=== PATIENT | female | born 1965 | race Caucasian/White ===

== ENCOUNTER 2018-06-09 23:22 | Emergency (ER) | payer OTHER, SELFPAY ==
[2018-06-09 23:23] VITALS: BP 152/83; PULSE 68; RESP 14; TEMP 36.7; O2SAT 100; BMI 52.8
[2018-06-09 23:25] VITALS: BP 152/83; PULSE 61; RESP 14; O2SAT 100
--- NOTE | 2018-06-09 23:59 | ED.VIS.GEN ---
History of Present Illness Chief Complaint: Abd Pain Informant: Patient Onset: Hours - 1 Context: Sudden Onset - awhile after laid supine to sleep Timing: Continuous, Lasts - abouat 20 min, Waxes and wanes Quality: aching Location: epigastrium only, no radiation to sides or back or chest Current Severity: Mild Maximum Severity: Severe Worsened by: nothing Relieved by: after vomiting Associated Symptoms: nonbilious nonbloody emesis. no diarrhea, BRBPR, melena, CP, SOB. Narrative: History of but no other abdominal surgeries. Patient is concerned about her gallbladder, but admits that she has no specific reason to be, she just knows that her gallbladder is up there somewhere. - Past Medical History (1) GERD (gastroesophageal reflux disease) Status: Chronic (2) History of Helicobacter pylori infection Status: Resolved (3) Hypertension Status: Chronic Past Medical History - Allergies and Home Meds Allergies/Adverse Reactions: Allergies No Known Allergies Allergy (Verified 06/09/18 23:25) Primary Care Physician: Reinaldo Segal DO [Primary Care Provider] - 1-2 Days if not improving Smoking Status: Former smoker Review of Systems General: Denies: Chills, Fever Eyes: Denies: Visual changes - bilaterally, Diplopia ENT: Denies: Rhinorrhea, Sore throat Cardiovascular: Denies: Chest pain, Palpitations Respiratory: Denies: Dyspnea, Cough Gastrointestinal: Reports: Abdominal pain, Nausea, Vomiting. Denies: Diarrhea, Constipation, Melena, Hematochezia Genitourinary: Denies: Dysuria, Hematuria, Frequency Musculoskeletal: Reports: Swelling - Chronic, unchanged. Denies: Neck pain, Back pain Skin: Denies: Rash, Abscess Neurological: Denies: Headache, Weakness, Parasthesia, Numbness Endocrine: Denies: Heat intolerance, Cold intolerance Hematologic: Denies: Easy bruising, Easy bleeding Allergy: Denies: Swelling of the mouth, Swelling of the tongue Physical Exam Vital Signs/Narrative: Vital Signs Temp Pulse Resp BP Pulse Ox 06/09/18 23:25 61 14 152/83 H 100 06/09/18 23:23 98.0 F 68 14 152/83 H 100 General: Well nourished, Well developed, Obese Head: Normocephalic, Atraumatic Eyes: Perrl, EOMI ENT: Moist mucous membranes, No rhinorrhea Neck: Supple, Nontender Cardiovascular: Regular rate, Regular rhythm, No murmurs Respiratory: No distress, CTA bilaterally, Chest nontender Abdomen: Soft, Nondistended, Normal bowel sounds, Tender - Minimal, epigastric only. Otherwise benign.. Negative for: Gibbons's sign Extremities: Nontender, Edema - BLE, symmetric Skin: Normal color, No rash Neurological: Alert, Oriented x3, Cranial nerves II-XII grossly intact, Normal Strength, Normal Sensation Psychological: Normal affect Diagnostic/Tx/Re-eval Laboratory Tests 06/10/18 06/10/18 Range/Units 00:08 00:08 WBC 10.1 (4.4-11.0) K/mm3 RBC 4.35 (4.2-5.4) M/mm3 Hgb 11.6 L (12.0-15.0) g/dl Hct 37.1 (37-47) % MCV 85.3 (81-99) fL MCH 26.7 L (27.0-32.0) pg MCHC 31.3 L (32-36) g/gl RDW 15.3 H (11.6-14.6) % RDW Differential 46.9 H (35.1-43.9) fl Plt Count 148 L (150-450) K/mm3 MPV 11.6 (6.2-12.0) fl Immature Gran % (Auto) 0.200 (0.0-0.9) % Neut % (Auto) 73.0 H (47-70) % Lymph % (Auto) 20.0 (19-41) % [place] % (Auto) 5.2 (0-10) % Eos % (Auto) 1.3 (0-5) % Baso % (Auto) 0.3 (0-1) % Absolute Neuts (auto) 7.3 (2.0-7.7) X10^3/uL Absolute Lymphs (auto) 2.01 (0.83-4.51) X10^3/ul Total Counted Not Reportable Sodium 136 (136-145) mmol/L Potassium 3.3 L (3.5-5.1) mmol/L Chloride 99 (98-107) mmol/L Carbon Dioxide 32.0 (21.0-32.0) mmol/L Anion Gap 5 (5-15) BUN 17 (7-18) mg/dL Creatinine 1.06 H (0.55-1.02) mg/dL Estim Creat Clear Calc 57.13 ml/min Est GFR (MDRD) Af Amer 70 (>60) mL/min Est GFR (MDRD) Non-Af 58 L (>60) mL/min BUN/Creatinine Ratio 16.0 (10-20) RATIO Glucose 123 H (74-106) mg/dL Calcium 8.6 (8.5-10.1) mg/dL Total Bilirubin 0.50 (0.20-1.00) mg/dL AST 51 H (15-37) U/L ALT 39 (13-56) U/L Alkaline Phosphatase 78 (45-117) U/L Total Protein 7.4 (6.4-8.2) g/dL Albumin 3.4 (3.2-5.0) g/dL Globulin 4.0 (2.2-4.2) g/dL Albumin/Globulin Ratio 0.8 L (0.9-2.4) RATIO Lipase 84 (73-393) U/L - Medical Decision Making Other than a slightly low potassium, her labs are unremarkable. After a GI cocktail and Zofran, she states the pain and nausea went away, and now she is asymptomatic. I did a bedside ultrasound since ultrasound is not available at this hour, and I was unable to visualize her gallbladder even though she had last eaten about 7 or 8 hours prior. I was able to visualize her liver which appeared normal, as well as the inferior margin, which abutted up to her colon which had a significant amount of air and stool in it, which could have limited my view, as does her obesity. I reassure her, and advised her to follow-up. If she has more symptoms that are more indicative of biliary colic, she may need an official outpatient ultrasound, or in the ER if she is feeling especially bad. Advised to continue taking her antacid medication. ED Disposition - Plan for ED Patient: Disposition: Home or Assisted Living Chief Complaint: Abd Pain Diagnosis: Epigastric abdominal pain Instructions: ED Abdominal Pain Unkn Cause Prescriptions: Ondansetron [Zofran Odt] 8 mg PO Q8H PRN #12 tab PRN Reason: Nausea Referrals: Reinaldo Segal DO [Primary Care Provider] - 1-2 Days if not improving
[2018-06-10] MEDS: Ondansetron ODT 4 MG Tablet 8 MG PO (00:02)
[2018-06-10 00:16] LABS: Absolute Lymphocyte Count 2.01 X10^3/ul (0.83-4.51); Absolute Neutrophil Count 7.3 X10^3/uL (2.0-7.7); Basophil# 0.03 X10^3/uL; Basophil% 0.3 % (0-1); Eosinophil# 0.13 X10^3/uL; Eosinophils% 1.3 % (0-5); Hematocrit 37.1 % (37-47); Hemoglobin 11.6 g/dl (12.0-15.0); Lymphocyte # 2.01 X10^3/ul (4.0); Mean Corp Hgb Conc 31.3 g/gl (32-36); Mean Corpuscular Hgb 26.7 pg (27.0-32.0); Mean Corpuscular Volume 85.3 fL (81-99); Mean Platelet Vol. 11.6 fl (6.2-12.0); Monocyte# 0.52 X10^3/uL; Monocyte% 5.2 % (0-10); Neutrophil # 7.34 X10^3/uL (2.7-7.7); Platelet Count 148 K/mm3 (150-450); RBC Distribution Width CV 15.3 % (11.6-14.6); RBC Distribution Width SD 46.9 fl (35.1-43.9); Red Blood Count 4.35 M/mm3 (4.2-5.4); White Blood Count 10.1 K/mm3 (4.4-11.0)
[2018-06-10 00:17] LABS: POSITIVE COUNT NO; POSITIVE DIFFERENTIAL NO; POSITIVE MORPHOLOGY NO
[2018-06-10 00:32] LABS: ALB/GLOB Ratio 0.8 RATIO (0.9-2.4); AST(SGOT) 51 U/L (15-37); Alanine Aminotransfer ALT/SGPT 39 U/L (13-56); Albumin, Serum 3.4 g/dL (3.2-5.0); Alkaline Phosphatase 78 U/L (45-117); Anion Gap 5 (5-15); BUN 17 mg/dL (7-18); Calcium,Total 8.6 mg/dL (8.5-10.1); Chloride 99 mmol/L (98-107); Creatinine, Serum 1.06 mg/dL (0.55-1.02); EST Glomerular Filtration Rate 58 mL/min (>60); Est Glom Filt Rate - Afr Amer 70 mL/min (>60); Estimated Creatinine Clearance 57.13 ml/min; Glucose 123 mg/dL (74-106); Lipase 84 U/L (73-393); Potassium 3.3 mmol/L (3.5-5.1); Protein, Total 7.4 g/dL (6.4-8.2); Sodium Level 136 mmol/L (136-145)
[2018-06-10 01:29] VITALS: BP 133/64; PULSE 55; RESP 18; O2SAT 98
== END 2018-06-10 01:29 | disposition home or self-care (01) ==
PROVIDERS: Emergency Provider Emergency Medicine; Family Provider Preventive Medicine Occupational Medicine; PCP Preventive Medicine Occupational Medicine
DX: R10.13 Epigastric pain (principal); R11.0 Nausea; I10 Essential (primary) hypertension; Z87.891 Personal history of nicotine dependence
CPT/HCPCS: 36415; 80053; 83690; 85025; 99283

== ENCOUNTER 2018-10-27 04:12 | Emergency (ER) | payer OTHER, SELFPAY ==
[2018-10-27 04:12] VITALS: PULSE 140; RESP 17; TEMP 36.3; O2SAT 99; BMI 55.0
--- NOTE | 2018-10-27 04:18 | ED.RN ---
NO OLD EKGS FOUND
--- NOTE | 2018-10-27 04:20 | EKG12_ITS ---
Test Reason : REPEAT Blood Pressure : / mmHG Vent. Rate : 056 BPM Atrial Rate : 056 BPM P-R Int : 170 ms QRS Dur : 088 ms QT Int : 458 ms P-R-T Axes : 000 081 020 degrees QTc Int : 441 ms Sinus bradycardia Low voltage QRS Borderline ECG Confirmed by JAZLYN TIRADO ([id number]), business editor EMERALD PERRY ([id number]) on 10/31/2018 1:39:04 PM Referred By: DC Confirmed By:JAZLYN TIRADO
[2018-10-27] MEDS: dilTIAZem 25 MG/5 ML Vial 20 MG IV BOLUS (04:25)
[2018-10-27] MEDS: Aspirin 81 MG TAB.CHEW 324 MG PO (04:25)
--- NOTE | 2018-10-27 04:30 | RAD_ITS ---
HISTORY: shortness of breath EXAM: XR Chest 1 View: COMPARISON: None FINDINGS: # of images incl. paperwork: 2 LINES/DEVICES: None. LUNGS: Radiographically clear. No consolidation, edema or effusion. No pneumothorax. MEDIASTINUM AND CARDIOVASCULAR STRUCTURES: Cardiac silhouette not enlarged. Central airways and mediastinal contour are unremarkable. BONES AND SOFT TISSUES: Unremarkable. RAD/Chest 1 View (Portable) IMPRESSION: No radiographic evidence of acute cardiopulmonary disease. at 0450 Reported and signed by: Alvin Garcia MD Electronically Signed: Alvin Garcia, at 4:49 EST Tel , Service support ,
[2018-10-27 04:33] LABS: Absolute Lymphocyte Count 3.42 X10^3/ul (0.83-4.51); Absolute Neutrophil Count 4.5 X10^3/uL (2.0-7.7); Basophil# 0.04 X10^3/uL; Basophil% 0.5 % (0-1); Eosinophil# 0.16 X10^3/uL; Eosinophils% 1.9 % (0-5); Hematocrit 37.6 % (37-47); Hemoglobin 11.8 g/dl (12.0-15.0); Lymphocyte # 3.42 X10^3/ul (4.0); Lymphocyte % 40.6 % (19-41); Mean Corp Hgb Conc 31.4 g/gl (32-36); Mean Corpuscular Hgb 26.1 pg (27.0-32.0); Mean Corpuscular Volume 83.2 fL (81-99); Mean Platelet Vol. 11.7 fl (6.2-12.0); Monocyte# 0.26 X10^3/uL; Monocyte% 3.1 % (0-10); Neutrophil # 4.54 X10^3/uL (2.7-7.7); Neutrophil % 53.8 % (47-70); Platelet Count 147 K/mm3 (150-450); RBC Distribution Width CV 15.4 % (11.6-14.6); RBC Distribution Width SD 46.7 fl (35.1-43.9); Red Blood Count 4.52 M/mm3 (4.2-5.4); White Blood Count 8.4 K/mm3 (4.4-11.0)
[2018-10-27 04:35] LABS: POSITIVE COUNT NO; POSITIVE DIFFERENTIAL NO; POSITIVE MORPHOLOGY NO
[2018-10-27 04:50] VITALS: O2SAT 99
[2018-10-27 04:59] LABS: Anion Gap 13 (5-15); BUN 13 mg/dL (7-18); BUN/Creat Ratio 14.1 RATIO (10-20); Calcium,Total 8.4 mg/dL (8.5-10.1); Chloride 102 mmol/L (98-107); Creatinine, Serum 0.92 mg/dL (0.55-1.02); EST Glomerular Filtration Rate 68 mL/min (>60); Est Glom Filt Rate - Afr Amer 83 mL/min (>60); Estimated Creatinine Clearance 65.83 ml/min; Glucose 111 mg/dL (74-106); Sodium Level 141 mmol/L (136-145)
--- NOTE | 2018-10-27 05:02 | ED.RN ---
DR SMITH PAGED FOR DR ARANDA
[2018-10-27] MEDS: Enoxaparin 150 MG/ML Syringe SC (05:22)
--- NOTE | 2018-10-27 05:28 | ED.VISSUMM ---
- ER Visit Summary Date of Service: 10/27/18 Chief Complaint: Shortness of breath History of Present Illness: The patient is a 52 F with shortness of breath and palpitations. She woke up with the symptoms just prior to arrival. She said they feel like her prior atrial fibrillation. Her last episode of atrial fibrillation was about 9 years ago. She can sense when she is in A. fib. She takes aspirin but no other blood thinners. She is compliant with her metoprolol and Cardizem. She reports a history of CHF but denies any other cardiac history. Denies any history of lung disease. Denies any other symptoms at this time. Physical Examination: Afebrile. Heart rate 140. Blood pressure stable. 99% on room air. Alert and oriented. No acute distress. HEENT exam unremarkable. Oropharynx is clear. Heart irregularly irregular. Lungs clear. Abdomen soft. Skin normal in color without pallor or diaphoresis. Test Results: EKG showed atrial fibrillation at a rate of 142. Hemoglobin 11.8 and platelets 147. Potassium 3.0 and glucose 111. Troponin normal. Chest x-ray showed no acute process. Emergency Department Course and Treatment: Patient was placed on a monitor. IV access obtained. EKG showed atrial fibrillation with RVR. She was treated with Cardizem while awaiting results. Her potassium was 3.0 but otherwise her workup was fairly unremarkable, as above. On reevaluation, her heart rate is between 100-130. Systolic blood pressure did drop to the 80s. She is mentating well and her skin looks good. She feels the same. I spoke with Dr. Tan. Per his recommendations, she was treated with Lovenox 1/kg now. And will perform synchronized cardioversion 1 hour after Lovenox. If successful, the plan will be outpatient follow-up and treatment with Eliquis 5 mg twice a day for 1 month. After receiving Lovenox, the patient went back into sinus rhythm. Blood pressure improved. Heart rate in the 50s. Repeat EKG showed sinus rhythm. Patient will still be prescribed Eliquis. She is low risk for bleeding, HASBLED core is 1. Precautions were discussed. Hypokalemia was treated with K-Dur. Patient will follow up with her veterinary pathologist. Treatment Plan: As above Disposition: Discharge Impression: 1. Atrial fibrillation with RVR 2. Hypokalemia This note was generated with [email or web address] dictation software. It may contain incorrect words, spelling, and punctuation that were not noted in review of the chart prior to signing ED Disposition - Plan for ED Patient: Instructions: ED Afib Prescriptions: Apixaban [Eliquis] 5 mg PO BID 30 Days #60 tab Referrals: Harpal Tan MD [STAFF PHYSICIAN] -
--- NOTE | 2018-10-27 05:36 | ED.DCSUM_ITS ---
- ER Visit Summary Date of Service: 10/27/18 Chief Complaint: Shortness of breath History of Present Illness: The patient is a 52 F with shortness of breath and palpitations. She woke up with the symptoms just prior to arrival. She said they feel like her prior atrial fibrillation. Her last episode of atrial fibrillation was about 9 years ago. She can sense when she is in A. fib. She takes aspirin but no other blood thinners. She is compliant with her metoprolol and Cardizem. She reports a history of CHF but denies any other cardiac history. Denies any history of lung disease. Denies any other symptoms at this time. Physical Examination: Afebrile. Heart rate 140. Blood pressure stable. 99% on room air. Alert and oriented. No acute distress. HEENT exam unremarkable. Oropharynx is clear. Heart irregularly irregular. Lungs clear. Abdomen soft. Skin normal in color without pallor or diaphoresis. Test Results: EKG showed atrial fibrillation at a rate of 142. Hemoglobin 11.8 and platelets 147. Potassium 3.0 and glucose 111. Troponin normal. Chest x- ray showed no acute process. Emergency Department Course and Treatment: Patient was placed on a monitor. IV access obtained. EKG showed atrial fibrillation with RVR. She was treated with Cardizem while awaiting results. Her potassium was 3.0 but otherwise her workup was fairly unremarkable, as above. On reevaluation, her heart rate is between 100-130. Systolic blood pressure did drop to the 80s. She is mentating well and her skin looks good. She feels the same. I spoke with Dr. Tan. Per his recommendations, she was treated with Lovenox 1/kg now. And will perform synchronized cardioversion 1 hour after Lovenox. If successful, the plan will be outpatient follow-up and treatment with Eliquis 5 mg twice a day for 1 month. After receiving Lovenox, the patient went back into sinus rhythm. Blood pressure improved. Heart rate in the 50s. Repeat EKG showed sinus rhythm. Patient will still be prescribed Eliquis. She is low risk for bleeding, HASBLED core is 1. Precautions were discussed. Hypokalemia was treated with K-Dur. 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 Treatment Plan: As above Disposition: Discharge Impression: 1. Atrial fibrillation with RVR 2. Hypokalemia This note was generated with [employer] dictation software. It may contain incorrect words, spelling, and punctuation that were not noted in review of the chart prior to signing ED Disposition - Plan for ED Patient: Instructions: ED Afib Prescriptions: Apixaban [Eliquis] 5 mg PO BID 30 Days #60 tab Referrals: Harpal Tan MD [STAFF PHYSICIAN] -
--- NOTE | 2018-10-27 05:43 | EKG12_ITS ---
Test Reason : Blood Pressure : / mmHG Vent. Rate : 142 BPM Atrial Rate : 136 BPM P-R Int : 000 ms QRS Dur : 080 ms QT Int : 316 ms P-R-T Axes : 000 108 048 degrees QTc Int : 486 ms Atrial fibrillation with RVR Rightward axis Low voltage QRS Nonspecific ST abnormality Abnormal ECG Confirmed by JAZLYN TIRADO ([id number]), tape editor EMERALD PERRY ([id number]) on 10/31/2018 1:39:29 PM Referred By: DC Confirmed By:JAZLYN TIRADO
[2018-10-27 06:12] VITALS: BP 105/61; PULSE 55; PULSE 56; RESP 16; RESP 18; O2SAT 95
== END 2018-10-27 06:18 | disposition home or self-care (01) ==
LOC: ED 04:48
PROVIDERS: Emergency Provider Emergency Medicine; Family Provider Preventive Medicine Occupational Medicine; PCP Preventive Medicine Occupational Medicine
DX: I48.91 Unspecified atrial fibrillation (principal); E87.6 Hypokalemia; I11.0 Hypertensive heart disease with heart failure; I50.9 Heart failure, unspecified; K21.9 Gastro-esophageal reflux disease without esophagitis; Z79.82 Long term (current) use of aspirin; Z79.01 Long term (current) use of anticoagulants; Z79.899 Other long term (current) drug therapy; Z87.891 Personal history of nicotine dependence
CPT/HCPCS: 71045; 80048; 84484; 85025; 93005; 96372; 96374; 99285; J7030; A4216

== ENCOUNTER → 2019-02-06 08:04 | Outpatient (CLI) | payer OTHER, SELFPAY ==
[2018-11-21 12:55] VITALS: BMI 54.3
--- NOTE | 2019-02-06 08:06 | BI_ITS ---
MAMMOGRAPHY - BILATERAL SCREENING REASON FOR EXAM: Female, 53 years old. Routine annual screening examination. PERTINENT HISTORY: Non-contributory. TECHNIQUE: Digital bilateral breast ted (3D mammographic acquisition) in the CC and MLO projections. 2-D mediolateral oblique (MLO) and craniocaudad (CC) views of both breasts were obtained. CAD: Full Field Digital Mammography with Computer Added Detection was performed. COMPARISON: No comparison mammograms available at this time. If any prior films become available, an addendum to this report can be generated. FINDINGS: Breast Composition: There are scattered areas of fibroglandular density. There are no dominant masses or suspicious calcifications. Small benign-appearing bilateral axillary lymph nodes. No other significant abnormalities are identified. BI/SCREEN MAMM (CAD) W/TED BILAT IMPRESSION: Negative screening mammogram. Yearly followup mammogram recommended. (A) ASSESSMENT CATEGORY: BIRADS Category 2: Benign. A letter regarding these results will be sent to the patient by the facility within 30 days. Approximately 10% of breast cancers are not detected by mammography. A normal mammogram should not delay biopsy of a clinically suspicious abnormality. [id number] Electronically Signed: Jamshid Ngo, at 15:04 EDT , Service support ,
== END ==
PROVIDERS: Family Provider Preventive Medicine Occupational Medicine; PCP Preventive Medicine Occupational Medicine; Referring Provider Preventive Medicine Occupational Medicine; Visit Provider Preventive Medicine Occupational Medicine
DX: Z12.31 Encounter for screening mammogram for malignant neoplasm of breast (principal); I10 Essential (primary) hypertension
CPT/HCPCS: 77063; 77067

== ENCOUNTER → 2019-06-10 15:49 | Outpatient (CLI) | payer OTHER, SELFPAY ==
[2019-06-10 15:09] VITALS: BMI 54.2
[2019-06-10 16:53] LABS: Anion Gap 8 (5-15); BUN 12 mg/dL (7-18); BUN/Creat Ratio 14.4 RATIO (10-20); Calcium,Total 8.7 mg/dL (8.5-10.1); Chloride 103 mmol/L (98-107); Creatinine, Serum 0.83 mg/dL (0.55-1.02); EST Glomerular Filtration Rate 77 mL/min (>60); Est Glom Filt Rate - Afr Amer 93 mL/min (>60); Glucose 89 mg/dL (74-106); Potassium 3.9 mmol/L (3.5-5.1); Sodium Level 139 mmol/L (136-145)
[2019-06-10 17:03] LABS: BNP,B-Type NATRIURETIC PEPTIDE 135.6 pg/mL (0-100)
== END ==
LOC: LAB 15:51
PROVIDERS: Family Provider Preventive Medicine Occupational Medicine; PCP Preventive Medicine Occupational Medicine; Referring Provider Nurse Practitioner Family; Visit Provider Nurse Practitioner Family
DX: I48.0 Paroxysmal atrial fibrillation (principal); I10 Essential (primary) hypertension; R06.09 Other forms of dyspnea; R60.9 Edema, unspecified
CPT/HCPCS: 36415; 80048; 83880

== ENCOUNTER 2020-04-06 20:30 | Emergency (ER) | payer OTHER, SELFPAY ==
[2020-01-14 12:34] VITALS: BMI 53.2
[2020-04-06] VITALS (7 sets, daily range): BP systolic 88–163; BP diastolic 65–122; PULSE 70–141; RESP 16–18; TEMP 36.8; O2SAT 74–98; BMI 48.9
--- NOTE | 2020-04-06 21:15 | EKG12_ITS ---
Test Reason : REPEAT Blood Pressure : / mmHG Vent. Rate : 066 BPM Atrial Rate : 066 BPM P-R Int : 168 ms QRS Dur : 084 ms QT Int : 408 ms P-R-T Axes : 033 081 037 degrees QTc Int : 427 ms Normal sinus rhythm Normal ECG Confirmed by JAZLYN TIRADO ([id number]), science editor CARA FISHMAN ([id number]) on 04/11/2020 2:14:33 PM Referred By: ES Confirmed By:JAZLYN TIRADO
[2020-04-06] MEDS: dilTIAZem 25 MG/5 ML Vial IV BOLUS (21:32)
[2020-04-06 21:46] LABS: Absolute Neutrophil Count 4.4 X10^3/uL (2.0-7.7); Basophil# 0.05 X10^3/uL; Basophil% 0.7 % (0-1); Eosinophils% 1.3 % (0-5); Hematocrit 38.2 % (37-47); Hemoglobin 12.6 g/dL (12.0-15.0); Lymphocyte % 33.2 % (19-41); Mean Corpuscular Hgb 28.1 pg (27.0-32.0); Mean Corpuscular Volume 85.3 fL (81-99); Monocyte# 0.45 X10^3/uL; NRBC Flagged by Analyzer 0 % (0-5); Neutrophil # 4.42 X10^3/uL (2.7-7.7); Neutrophil % 58.7 % (47-70); Platelet Count 149 K/mm3 (150-450); RBC Distribution Width CV 14.6 % (11.6-14.6); RBC Distribution Width SD 45.9 fl (35.1-43.9); Red Blood Count 4.48 M/mm3 (4.2-5.4); White Blood Count 7.5 K/mm3 (4.4-11.0)
[2020-04-06 22:12] LABS: ALB/GLOB Ratio 0.8 RATIO (0.9-2.4); AST(SGOT) 15 U/L (15-37); Alanine Aminotransfer ALT/SGPT 34 U/L (13-56); Albumin, Serum 3.4 g/dL (3.2-5.0); Alkaline Phosphatase 69 U/L (45-117); Anion Gap 7 (5-15); BUN 14 mg/dL (7-18); BUN/Creat Ratio 12.7 RATIO (10-20); Calcium,Total 8.8 mg/dL (8.5-10.1); Chloride 104 mmol/L (98-107); EST Glomerular Filtration Rate 55 mL/min (>60); Est Glom Filt Rate - Afr Amer 67 mL/min (>60); Estimated Creatinine Clearance 53.83 ml/min; Glucose 101 mg/dL (74-106); Potassium 3.2 mmol/L (3.5-5.1); Protein, Total 7.4 g/dL (6.4-8.2); Sodium Level 138 mmol/L (136-145)
--- NOTE | 2020-04-06 23:14 | EKG12_ITS ---
Test Reason : PALPS Blood Pressure : / mmHG Vent. Rate : 173 BPM Atrial Rate : 150 BPM P-R Int : 000 ms QRS Dur : 080 ms QT Int : 282 ms P-R-T Axes : 000 097 060 degrees QTc Int : 478 ms Atrial fibrillation with rapid ventricular response Rightward axis Nonspecific ST abnormality Abnormal ECG Confirmed by JAZLYN TIRADO ([id number]), manager editorial CARA FISHMAN ([id number]) on 04/11/2020 2:14:15 PM Referred By: SUKH Confirmed By:JAZLYN TIRADO
--- NOTE | 2020-04-06 23:30 | ED.VISSUMM ---
- ER Visit Summary Date of Service: 04/06/20 Chief Complaint: Palpitations History of Present Illness: The patient is a 54 F who presents with palpitations that began tonight. Patient states she was sitting watching TV when she felt like she was going into atrial fibrillation. Patient states she has a history of paroxysmal atrial fibrillation. Patient states she currently takes metoprolol and losartan. Patient states that prior episodes converted with diltiazem. Patient states she has never had to have been cardioverted. Patient states she feels her heart beating irregularly. Patient admits to some mild lightheadedness. Patient denies any chest pain. Patient denies any shortness of breath or cough. Patient does admit to a mild headache. Physical Examination: Vital signs are stable except for a tachycardia 130. Patient is afebrile. Patient is in no acute distress. Oral mucosa is pink and moist. Neck is supple. Trachea is midline. There is no JVD. Heart was irregularly irregular and tachycardic. Lungs are clear and equal bilaterally. Abdomen is soft. Bowel sounds are normal. There is no tenderness. Cranial nerves II through XII are intact. There are no focal motor or sensory deficits noted. Extremities are intact. There is no calf tenderness or edema. Test Results: Initial EKG shows atrial fibrillation with a rate of 173. There are no acute ST or T wave changes. CBC was within normal limits. Comprehensive metabolic profile showed a mild hypokalemia 3.2 and a creatinine of 1.10. Troponin was normal. Emergency Department Course and Treatment: Patient was given a Cardizem bolus and started on Cardizem drip. Patient remained in atrial fibrillation with a rate in the 120s to 150s. Patient's blood pressure began to drop into the 80s systolic. A consent for cardioversion was obtained. As the patient was given consent for the cardioversion, she converted into a normal sinus rhythm. Repeat EKG was obtained and showed a normal sinus rhythm with a rate of 66. There are no acute ST or T wave changes. Patient felt better. Patient was instructed to follow-up with her primary care physician and refrigeration systems installer. Patient understood and was agreeable with the plan. All questions were answered. Disposition: Discharge home Impression: Paroxysmal atrial fibrillation with rapid ventricular response This note was generated with [employer] software. It may contain incorrect words, spelling, and punctuation that were not noted in review of the chart prior to signing ED Disposition - Plan for ED Patient: Disposition: Home or Assisted Living Diagnosis: Paroxysmal atrial fibrillation with rapid ventricular response Instructions: ED AFIB Referrals: Reinaldo Segal DO [Primary Care Provider] - 5-7 Days Harpal Tan MD [STAFF PHYSICIAN] - 3-5 Days
== END 2020-04-06 23:53 | disposition home or self-care (01) ==
PROVIDERS: Emergency Provider Emergency Medicine; PCP Preventive Medicine Occupational Medicine
DX: I48.0 Paroxysmal atrial fibrillation (principal)
CPT/HCPCS: 80053; 84484; 85025; 93005; 96365; 96366; 96376; 99284; A4216

== ENCOUNTER → 2020-05-18 09:40 | Outpatient (CLI) | payer OTHER, SELFPAY ==
[2020-04-20 09:50] VITALS: BMI 47.5
--- NOTE | 2020-05-18 09:41 | ECHOCS_ITS ---
Reason For Study: Afib, Aflutter Procedure This was a 2D Doppler, Color Flow transthoracic echocardiogram. Contrast injection was performed. Exam performed in department. Left Ventricle Normal LV size. Left ventricular systolic function is normal. The estimated ejection fraction is 60 %. Normal diastology for age. No regional wall motion abnormalities noted. Right Ventricle Normal RV size. Normal systolic function. Atria The left atrium is mildly enlarged. Normal right atrium. Mitral Valve Normal mitral valve. Tricuspid Valve Normal tricuspid valve. Mild tricuspid valve insufficiency. Pulmonary artery systolic pressure is 25 mmHg. Aortic Valve Normal aortic valve. Trisinus/trileaflet aortic valve. Pulmonic Valve Normal pulmonic valve. Great Vessels Normal aortic root. The pulmonary artery is normal size. Inferior vena cava collapse with respiration. Pericardium/Pleural No pericardial effusion. Medication Diluted definity 3ml given slow IV push to enhance endocardial definition. MMode/2D Measurements & Calculations LVIDd: 5.5 cm IVSd: 0.90 cm Ao root diam: 3.6 cm LVIDs: 3.5 cm LVPWd: 1.0 cm RVDd: 3.5 cm FS: 37.0 % LAV(MOD-bp): 66.3 ml LVAd ap4: 37.4 cm2 SV(MOD-sp4): 81.0 ml LAV(MOD-bp) Indexed: 29.4 ml/m2 EDV(MOD-sp4): 132.4 ml LAV(MOD-sp2): 58.2 ml EDV(sp4-el): 135.1 ml LAV(MOD-sp4): 61.0 ml LVAs ap4: 20.3 cm2 ESV(MOD-sp4): 51.4 ml ESV(sp4-el): 50.7 ml EF(MOD-sp4): 61.2 % EF(sp4-el): 62.5 % SV(sp4-el): 84.4 ml LA A4 area: 22.7 cm2 LA dimension(2D): 4.2 cm RA A4 area: 17.7 cm2 Doppler Measurements & Calculations MV E max issa: 82.7 cm/sec Lat Peak E' Issa: 8.4 cm/sec Med Peak E' Issa: 7.3 cm/sec MV A max issa: 68.7 cm/sec E/E' lat: 9.9 E/E' med: 11.3 MV E/A: 1.2 Ao V2 max: 175.3 cm/sec LV V1 max: 147.2 cm/sec PA V2 max: 90.6 cm/sec Ao max P.3 mmHg LV V1 max P.7 mmHg Ao V2 mean: 128.8 cm/sec Ao mean P.1 mmHg Ao V2 VTI: 44.7 cm TR max issa: 238.5 cm/sec TR max P.8 mmHg Interpretation Summary Normal LV size. Left ventricular systolic function is normal. The estimated ejection fraction is 60 %. Normal diastology for age. Contrast injection was performed. Ordering Physician: Harpal Tan Referring Physician: Reinaldo Segal Performed By: Elyssa Rivera, ABRAM, RVT
== END ==
PROVIDERS: PCP Preventive Medicine Occupational Medicine; Referring Provider Internal Medicine Cardiovascular Disease; Visit Provider Internal Medicine Cardiovascular Disease
DX: I10 Essential (primary) hypertension (principal); I48.0 Paroxysmal atrial fibrillation
CPT/HCPCS: 93306; Q9957; A4216; C8929

== ENCOUNTER → 2020-06-15 15:22 | Outpatient (CLI) | payer OTHER, SELFPAY | PROVIDERS: PCP Preventive Medicine Occupational Medicine; Referring Provider Preventive Medicine Occupational Medicine; Visit Provider Preventive Medicine Occupational Medicine | DX: R69 Illness, unspecified (principal) ==

== ENCOUNTER → 2020-06-15 15:35 | Outpatient (CLI) | payer OTHER, SELFPAY ==
[2020-04-20 09:50] VITALS: BMI 47.5
--- NOTE | 2020-06-15 15:36 | BI_ITS ---
MAMMOGRAPHY - BILATERAL SCREENING REASON FOR EXAM: Female, 54 years old. Routine annual screening examination. PERTINENT HISTORY: Non-contributory. TECHNIQUE: Digital bilateral breast ted (3D mammographic acquisition) in the CC and MLO projections. 2-D mediolateral oblique (MLO) and craniocaudad (CC) views of both breasts were obtained. CAD: Full Field Digital Mammography with Computer Added Detection was performed. COMPARISON: Comparison is made with prior study dated 02/06/2019. FINDINGS: Breast Composition: There are scattered areas of fibroglandular density. There are no dominant masses or suspicious calcifications. Stable benign appearing bilateral axillary lymph nodes. No other significant abnormalities are identified. There has been no significant change since the prior study. BI/SCREEN MAMM (CAD) W/TED BILAT IMPRESSION: Stable bilateral screening mammogram. Yearly follow-up mammogram recommended. (A) ASSESSMENT CATEGORY: BIRADS Category 2: Benign. A letter regarding these results will be sent to the patient by the facility within 30 days. Approximately 10% of breast cancers are not detected by mammography. A normal mammogram should not delay biopsy of a clinically suspicious abnormality. [id number] Electronically Signed: Jamshid Ngo, at 8:15 EDT , Service support ,
== END ==
PROVIDERS: PCP Preventive Medicine Occupational Medicine; Referring Provider Preventive Medicine Occupational Medicine; Visit Provider Preventive Medicine Occupational Medicine
DX: Z12.31 Encounter for screening mammogram for malignant neoplasm of breast (principal)
CPT/HCPCS: 77063; 77067

== ENCOUNTER → 2020-12-14 16:54 | Outpatient (CLI) | payer OTHER, SELFPAY ==
[2020-04-20 09:50] VITALS: BMI 47.5
[2020-12-14 17:31] LABS: Anion Gap 5 (5-15); BUN 13 mg/dL (7-18); BUN/Creat Ratio 14.1 RATIO (10-20); Calcium,Total 8.8 mg/dL (8.5-10.1); Chloride 101 mmol/L (98-107); Creatinine, Serum 0.92 mg/dL (0.55-1.02); EST Glomerular Filtration Rate 68 mL/min (>60); Est Glom Filt Rate - Afr Amer 82 mL/min (>60); Glucose 81 mg/dL (74-106); Magnesium 1.9 mg/dL (1.6-2.6); Potassium 3.6 mmol/L (3.5-5.1); Sodium Level 136 mmol/L (136-145)
== END ==
PROVIDERS: PCP Preventive Medicine Occupational Medicine; Visit Provider Physician Assistant Medical
DX: I48.0 Paroxysmal atrial fibrillation (principal); I11.0 Hypertensive heart disease with heart failure; I50.32 Chronic diastolic (congestive) heart failure
CPT/HCPCS: 36415; 80048; 83735

== ENCOUNTER → 2021-01-06 07:05 | Outpatient (CLI) | payer OTHER, SELFPAY ==
[2020-12-19 13:06] VITALS: BMI 40.1
--- NOTE | 2021-01-09 07:15 | STRESSREP ---
Stress Test Report Exercise myocardial perfusion stress test. 54-year-old lady with a history of paroxysmal atrial fibrillation. Stress protocol: Resting EKG demonstrates normal sinus rhythm with a rate of 54 bpm resting blood pressures 110/62 mmHg. The patient exercised according to the regular [facility]ank protocol for a total duration of 5 minutes and 30 seconds. The maximum heart rate attained was 155 bpm which was 92% of maximum predicted heart rate the maximum workload was 7 metabolic equivalents. The patient maintained sinus rhythm throughout the recording. At rest there were no ST or T wave changes noted to suggest ischemia. At peak exercise no changes were noted to suggest ischemia. The peak blood pressure was 142/70 mmHg no clinical angina was noted the test was terminated due to leg discomfort. Myocardial perfusion protocol. 14.3 mCi of technetium 99m sestamibi was injected at rest. The patient exercised according to regular Mayank protocol and at peak exercise 44.2 mCi of technetium 90 9M sestamibi was injected stress images were obtained stress and rest images were reconstructed in comparing the short axis vertical long and horizontal long axis. Gated images were also obtained. Perfusion SPECT analysis: Review of the stress images demonstrate normal uptake of tracer noted in all areas of the myocardium. The resting images similarly demonstrate normal uptake of tracer noted in all areas of the myocardium. No areas of reversibility are noted to suggest ischemia. Gated SPECT analysis: The gated ejection fraction is 71%. Conclusion: Normal exercise myocardial perfusion stress test at a moderate workload. No atrial fibrillation noted. No clinical angina present.
== END ==
PROVIDERS: PCP Preventive Medicine Occupational Medicine; Visit Provider Physician Assistant Medical
DX: I48.0 Paroxysmal atrial fibrillation (principal); I11.0 Hypertensive heart disease with heart failure; I50.32 Chronic diastolic (congestive) heart failure
CPT/HCPCS: 78452; 93017; A9500; A4216

== ENCOUNTER → 2021-03-22 15:16 | Outpatient (CLI) | payer OTHER, SELFPAY ==
[2021-03-22 09:10] VITALS: BMI 41.8
[2021-03-22 17:54] LABS: ALB/GLOB Ratio 0.9 RATIO (0.9-2.4); AST(SGOT) 9 U/L (15-37); Alanine Aminotransfer ALT/SGPT 18 U/L (13-56); Albumin, Serum 3.4 g/dL (3.2-5.0); Alkaline Phosphatase 68 U/L (45-117); Anion Gap 6 (5-15); BUN 18 mg/dL (7-18); BUN/Creat Ratio 17.5 RATIO (10-20); Calcium,Total 8.5 mg/dL (8.5-10.1); Chloride 101 mmol/L (98-107); Creatinine, Serum 1.03 mg/dL (0.55-1.02); EST Glomerular Filtration Rate 60 mL/min (>60); Est Glom Filt Rate - Afr Amer 72 mL/min (>60); Globulin 3.6 g/dL (2.2-4.2); Glucose 75 mg/dL (74-106); Magnesium 1.9 mg/dL (1.6-2.6); Potassium 3.6 mmol/L (3.5-5.1); Sodium Level 136 mmol/L (136-145)
== END ==
PROVIDERS: PCP Preventive Medicine Occupational Medicine; Visit Provider Nurse Practitioner Gerontology
DX: R42 Dizziness and giddiness (principal)
CPT/HCPCS: 36415; 80053; 83735

== ENCOUNTER 2022-03-29 05:17 | Emergency (ER) | payer OTHER, SELFPAY ==
[2022-03-29] VITALS (7 sets, daily range): BP systolic 115–163; BP diastolic 59–97; PULSE 52–147; RESP 10–19; TEMP 36.6; O2SAT 96–99; BMI 51.8
--- NOTE | 2022-03-29 05:24 | EKG12_ITS ---
Test Reason : palps Blood Pressure : / mmHG Vent. Rate : 137 BPM Atrial Rate : 000 BPM P-R Int : 000 ms QRS Dur : 092 ms QT Int : 284 ms P-R-T Axes : 000 105 043 degrees QTc Int : 428 ms Atrial fibrillation with rapid ventricular response Rightward axis Nonspecific ST abnormality Abnormal ECG Confirmed by CESAR DUMONT, LYDIA ([id number]), map editor MART ADAMS ([id number]) on 03/30/2022 10:17:48 AM Referred By: Real Confirmed By:LYDIA GUERRERO MD
[2022-03-29] MEDS: dilTIAZem 25 MG/5 ML Vial 20 MG IV BOLUS (05:29)
[2022-03-29] MEDS: 0.9% Normal Saline 1,000 ML 999 ML IV (05:31)
--- NOTE | 2022-03-29 05:40 | EX.ED.DYSGE1 ---
HPI History of Present Illness Chief Complaint: Palpitations Narrative Narrative: Patient is a 56-year-old female with past medical history of paroxysmal atrial fibrillation hypertension and congestive heart failure. She states she takes flecainide and metoprolol as well as Eliquis secondary to this condition. She reports she was getting ready for work this morning when she suddenly felt her heart began to race and skipped beats. She states this is how it is presented with her previous bouts of atrial fibrillation. She states symptoms began roughly 1 hour prior to arrival. She denies any excessive stimulant use such as nicotine/caffeine or illicit drug use. She states she has been taking her medications as directed and denies any chest pain or shortness of breath associated with this [facility] Medical History (Updated 03/29/22 @ 06:[address] Nick Blanca, ) Atrial fibrillation with rapid ventricular response (04/06/20) Chronic diastolic (congestive) heart failure Epigastric abdominal pain Essential (primary) hypertension GERD (gastroesophageal reflux disease) History of Helicobacter pylori infection Morbid obesity Obstructive sleep apnea Paroxysmal atrial fibrillation Home Medications metoprolol tartrate 50 mg tablet 50 mg PO BID 06/09/18 [History Last Taken Unknown] triamterene 37.5 mg-hydrochlorothiazide 25 mg capsule 1 ea PO DAILY 06/09/18 [History Last Taken Unknown] vdpfilo-enoouildah-JZV-caffeine 30 mg-50 mg-325 mg-40 mg capsule 1 cap PO Q4H PRN PRN Pain 01/14/20 [History Last Taken Unknown] omeprazole 20 mg capsule,delayed release 20 mg PO DAILY PRN STOMACHE 04/20/20 [History Last Taken Unknown] furosemide 40 mg tablet (Lasix) 40 mg PO DAILY PRN edema #90 tabs 05/18/21 [Rx Last Taken Unknown] losartan 50 mg tablet 50 mg PO DAILY #90 tabs 05/18/21 [Rx Last Taken Unknown] potassium chloride 20 mEq tablet,extended release 20 meq PO DAILY #90 tabs 05/18/21 [Rx Last Taken Unknown] apixaban 5 mg tablet (Eliquis) 5 mg PO BID #60 tabs 12/14/21 [Rx Last Taken Unknown] flecainide 100 mg tablet 100 mg PO Q12H #60 tabs 01/02/22 [Rx Last Taken Unknown] Allergy/AdvReac Type Severity Reaction Status Date / Time No Known Allergies Allergy Verified 03/29/22 05:23 Family History Sister Hypertension Diabetes Surgical History History of knee replacement (2017) Social History Smoking Status: Never smoker ROS ROS ED Constitutional Constitutional ED: Denies chills or fever(s) ENT ENT ED: Denies sore throat Cardiovascular Cardiovascular: Reports palpitations and racing heartbeat; Denies chest pain Respiratory/Chest Respiratory/Chest: Denies cough or dyspnea Gastrointestinal Gastrointestinal: Denies abdominal pain, diarrhea, nausea or vomiting Genitourinary Genitourinary ED: Denies dysuria Musculoskeletal Musculoskeletal: Denies myalgias Integumentary Denies rash Neurologic Neurologic: Denies headache(s) Hematologic/Lymphatic Hematologic/Lymphatic: Reports easy bleeding and easy bruising EXAM Physical Exam Const Vital Signs: 03/29/22 05:20 03/29/22 05:33 03/29/22 05:51 Temperature 97.9 F Temperature Source Temporal Pulse Rate 147 H 127 H 117 H Respiratory Rate 18 19 H 16 Blood Pressure 163/97 H 146/83 H 125/59 H Blood Pressure Mean 119 104 81 Blood Pressure Position Semi-Fowlers Blood Pressure Location Right Forearm Pulse Ox 98 96 96 Oxygen Delivery Method Room Air Room Air 03/29/22 06:18 03/29/22 06:25 03/29/22 06:41 Temperature Temperature Source Pulse Rate 110 H 126 H 55 L Respiratory Rate 10 L 15 17 Blood Pressure 115/93 H 115/93 H 134/80 H Blood Pressure Mean 100 100 98 Blood Pressure Position Semi-Fowlers Blood Pressure Location Right Forearm Pulse Ox 96 97 98 Oxygen Delivery Method Room Air Positive well nourished, well developed and obese General Appearance ED: well developed Nutritional Appearance: obese Eyes PERRL and EOMs intact bilaterally General Eye ED: Negative for pale conjunctiva Neck supple Resp normal respiratory effort and clear to auscultation bilaterally Cardio Rate: other Other Details: Irregularly irregular rhythm with tachycardic rate consistent atrial fibrillation with RVR GI normal to inspection, nondistended, normoactive bowel sounds, non-tender and non-distended GI Narrative: No follow-up care guarding or rigidity no pulsatile mass Auscultation: normoactive bowel sounds Palpation: soft Extremity normal to inspection Extremity Narrative: No asymmetric edema no pitting edema negative Homans' sign bilaterally Neuro oriented x3 and CN's II-XII intact bilaterally Sensorium / Orientation: alert Psych mental status grossly normal Skin no rashes or lesions noted MDM MDM MDM Narrative Medical decision making narrative: Patient presented to the ER hypertensive and she does have history of this and did not take her morning meds. She also is in a tachycardic rate which exam and EKG confirm is atrial fibrillation. Patient does have a history of this and is on Eliquis and therefore my concern for underlying PE is low. Therefore there is no need to perform a CTA. Patient has no reported risk factor for going into A. fib such as dehydration or electrolyte derangement stimulant use or blood volume loss. However as these are causes patient blood work will be obtained. Patient states that she has spontaneously converted to normal sinus after being given Cardizem bolus and drip. Therefore that will be provided at this time and patient will be monitored. Labs revealed no clinically significant findings and after being on the drip and bolus of Cardizem she did spontaneously convert to normal sinus rhythm. Therefore patient be watched in the ER off any type of medication for approximately the next 30 minutes and if there is no return to dysrhythmia/atrial fibrillation then she will be safe for discharge. Lab Data Attestation: I reviewed the patient's lab results. Labs: Laboratory Results - last 24 hr 03/29/22 03/29/22 05:25 05:25 WBC 6.2 RBC 4.75 Hgb 10.8 L Hct 35.8 L MCV 75.4 L MCH 22.7 L MCHC 30.2 L RDW Std Deviation 45.9 H RDW Coeff of Bennett 17.1 H Plt Count 158 MPV TNP Immature Gran % (Auto) 0.200 Neut % (Auto) 49.4 Lymph % (Auto) 40.7 [place] % (Auto) 6.1 Eos % (Auto) 2.6 Baso % (Auto) 1.0 Absolute Neuts (auto) 3.1 Absolute Lymphs (auto) 2.54 Nucleated RBC % 0 Differential Comment SCANNED Platelet Estimate ADEQUATE Plt Morphology Comment LARGE Sodium 137 Potassium 3.8 Chloride 106 Carbon Dioxide 24.0 Anion Gap 7 BUN 13 Creatinine 0.83 Estim Creat Clear Calc 69.72 Est GFR (MDRD) Af Amer 92 Est GFR (MDRD) Non-Af 76 BUN/Creatinine Ratio 15.6 Glucose 104 Calcium 9.1 Magnesium 1.7 TSH 3.83 H Critical Care Time Critical Care Time: Yes Critical care time (excluding procedures): - (Critical care time of 33 minutes) Discharge Plan Triage Chief Complaint: Palpitations ED Provider: Nick Blanca Dx/Rx/DC Orders Clinical Impression: Paroxysmal atrial fibrillation with RVR, Essential (primary) hypertension, Current use of watermelon harvesting supervisor anticoagulation Instructions: ED AFIB Prescriptions: No Action omeprazole 20 mg capsule,delayed release(DR/EC) 20 mg PO DAILY PRN (Reason: STOMACHE) losartan 50 mg tablet 50 mg PO DAILY Qty: 90 3RF furosemide [Lasix] 40 mg tablet 40 mg PO DAILY PRN (Reason: edema) Qty: 90 3RF triamterene-hydrochlorothiazid 1 EACH capsule 1 ea PO DAILY metoprolol tartrate 50 MG tablet 50 mg PO BID vybzgvx-xxuarecwgf-YWJ-caff [id number] mg capsule 1 cap PO Q4H PRN PRN (Reason: Pain) potassium chloride 20 mEq tablet extended release 20 meq PO DAILY Qty: 90 3RF Eliquis 5 mg tablet 5 mg PO BID Qty: 60 11RF flecainide 100 mg tablet 100 mg PO Q12H Qty: 60 11RF Primary Care Provider: Reinaldo Segal Referrals: Harpal Tan MD [Med Staff - Active Staff] - 1 Week Reinaldo Segal DO [Primary Care Provider] - Disposition Disposition: Home, Self Care
[2022-03-29 05:59] LABS: Anion Gap 7 (5-15); BUN 13 mg/dL (7-18); BUN/Creat Ratio 15.6 RATIO (10-20); Calcium,Total 9.1 mg/dL (8.5-10.1); Chloride 106 mmol/L (98-107); Creatinine, Serum 0.83 mg/dL (0.55-1.02); EST Glomerular Filtration Rate 76 mL/min (>60); Est Glom Filt Rate - Afr Amer 92 mL/min (>60); Estimated Creatinine Clearance 69.72 ml/min; Glucose 104 mg/dL (74-106); Magnesium 1.7 mg/dL (1.6-2.6); Potassium 3.8 mmol/L (3.5-5.1); Sodium Level 137 mmol/L (136-145); Thyroid Stim Hormone (TSH) 3.83 uIU/mL (0.358-3.74)
[2022-03-29 06:22] LABS: Absolute Lymphocyte Count 2.54 X10^3/uL (0.83-4.51); Absolute Neutrophil Count 3.1 X10^3/uL (2.0-7.7); Basophil# 0.06 X10^3/uL; Eosinophil# 0.16 X10^3/uL; Eosinophils% 2.6 % (0-5); Hematocrit 35.8 % (37-47); Hemoglobin 10.8 g/dL (12.0-15.0); Lymphocyte # 2.54 X10^3/ul (0.83-4.51); Lymphocyte % 40.7 % (19-41); Mean Corp Hgb Conc 30.2 g/dL (32-36); Mean Corpuscular Hgb 22.7 pg (27.0-32.0); Mean Corpuscular Volume 75.4 fL (81-99); Monocyte# 0.38 X10^3/uL; Monocyte% 6.1 % (0-10); NRBC Flagged by Analyzer 0 % (0-5); Neutrophil # 3.09 X10^3/uL (2.7-7.7); Neutrophil % 49.4 % (47-70); POSITIVE MORPHOLOGY YES; Platelet Count 158 K/mm3 (150-450); RBC Distribution Width CV 17.1 % (11.6-14.6); RBC Distribution Width SD 45.9 fl (35.1-43.9); Red Blood Count 4.75 M/mm3 (4.2-5.4); White Blood Count 6.2 K/mm3 (4.4-11.0)
[2022-03-29 06:24] LABS: Differential Indicated SCAN CRITERIA MET
--- NOTE | 2022-03-29 06:32 | ED.RN ---
pt converted to nsr. hr 57
[2022-03-29 06:53] LABS: Differential Comment SCANNED; Platelet Estimate ADEQUATE (ADEQ); Platelet Morphology LARGE
== END 2022-03-29 07:44 | disposition home or self-care (01) ==
PROVIDERS: Emergency Provider Emergency Medicine; PCP Preventive Medicine Occupational Medicine; Visit Provider Emergency Medicine
DX: I48.0 Paroxysmal atrial fibrillation (principal); I11.0 Hypertensive heart disease with heart failure; I50.32 Chronic diastolic (congestive) heart failure; E66.01 Morbid (severe) obesity due to excess calories; Z79.01 Long term (current) use of anticoagulants; Z79.899 Other long term (current) drug therapy
CPT/HCPCS: 80048; 83735; 84443; 85025; 93005; 96365; 96376; 99282; J7030; A4216

== ENCOUNTER → 2022-05-14 | Outpatient (CLI) | payer OTHER, SELFPAY ==
[2022-05-14 11:34] LABS: Hematocrit 29.8 % (37-47); Hemoglobin 8.5 g/dL (12.0-15.0); Mean Corp Hgb Conc 28.5 g/dL (32-36); Mean Corpuscular Hgb 21.5 pg (27.0-32.0); Mean Corpuscular Volume 75.4 fL (81-99); Platelet Count 161 K/mm3 (150-450); RBC Distribution Width SD 48.3 fl (35.1-43.9); Red Blood Count 3.95 M/mm3 (4.2-5.4); White Blood Count 8.2 K/mm3 (4.4-11.0)
[2022-05-14 13:11] LABS: Cholesterol 168 mg/dL (200); Glucose 89 mg/dL (74-106); High Density Lipoprotein 61 mg/dL; Thyroid Stim Hormone (TSH) 2.13 uIU/mL (0.358-3.74); Triglycerides 124 mg/dL; Very Low Density Lipoprotein 25 mg/dL (5-40)
== END | disposition home or self-care (01) ==
LOC: LAB 09:48
PROVIDERS: PCP Preventive Medicine Occupational Medicine; Visit Provider Preventive Medicine Occupational Medicine
DX: R94.6 Abnormal results of thyroid function studies (principal); E66.01 Morbid (severe) obesity due to excess calories; Z68.43 Body mass index [BMI] 50.0-59.9, adult; D64.9 Anemia, unspecified
CPT/HCPCS: 36415; 80061; 82947; 84443; 85027

== ENCOUNTER 2022-05-15 14:24 | Outpatient (RCR) | payer OTHER, SELFPAY | END 2022-05-25 23:59 | LOC: NS 14:24 | PROVIDERS: PCP Preventive Medicine Occupational Medicine; Referring Provider Preventive Medicine Occupational Medicine; Visit Provider Preventive Medicine Occupational Medicine | DX: Z71.3 Dietary counseling and surveillance (principal); E66.01 Morbid (severe) obesity due to excess calories; Z68.43 Body mass index [BMI] 50.0-59.9, adult | CPT/HCPCS: 97802 ==

== ENCOUNTER → 2022-05-15 | Outpatient (CLI) | payer OTHER, SELFPAY ==
[2022-05-15 17:28] LABS: Iron 18 ug/dL (50-170)
[2022-05-15 17:34] LABS: Vitamin B12 266 pg/mL (211-911)
== END | disposition home or self-care (01) ==
LOC: LAB 15:54
PROVIDERS: PCP Preventive Medicine Occupational Medicine; Referring Provider Preventive Medicine Occupational Medicine; Visit Provider Preventive Medicine Occupational Medicine
DX: D50.9 Iron deficiency anemia, unspecified (principal); E53.8 Deficiency of other specified B group vitamins
CPT/HCPCS: 36415; 82607; 83540

== ENCOUNTER → 2022-06-05 | Outpatient (CLI) | payer OTHER, SELFPAY ==
[2022-06-05 16:28] LABS: Hematocrit 37.1 % (37-47); Hemoglobin 10.8 g/dL (12.0-15.0); Mean Corp Hgb Conc 29.1 g/dL (32-36); Mean Corpuscular Hgb 23.5 pg (27.0-32.0); Mean Corpuscular Volume 80.8 fL (81-99); Mean Platelet Vol. 11.2 fl (6.2-12.0); POSITIVE MORPHOLOGY YES; Platelet Count 167 K/mm3 (150-450); RBC Distribution Width SD 70.1 fl (35.1-43.9); Red Blood Count 4.59 M/mm3 (4.2-5.4); White Blood Count 7.4 K/mm3 (4.4-11.0)
[2022-06-05 16:44] LABS: Iron 28 ug/dL (50-170)
[2022-06-05 17:01] LABS: Scan Indicated on CBC? Y/N YES- FLAGS NOTED
[2022-06-05 17:20] LABS: Differential Comment SCANNED
[2022-06-05 17:28] LABS: Vitamin B12 685 pg/mL (211-911)
== END | disposition home or self-care (01) ==
LOC: LAB 16:17
PROVIDERS: PCP Preventive Medicine Occupational Medicine; Referring Provider Preventive Medicine Occupational Medicine; Visit Provider Preventive Medicine Occupational Medicine
DX: E53.8 Deficiency of other specified B group vitamins (principal); D50.9 Iron deficiency anemia, unspecified
CPT/HCPCS: 36415; 82607; 83540; 85027

== ENCOUNTER 2022-06-12 14:30 | Outpatient (RCR) | payer OTHER, SELFPAY | END 2022-06-25 23:59 | LOC: NS 14:30 | PROVIDERS: PCP Preventive Medicine Occupational Medicine; Referring Provider Preventive Medicine Occupational Medicine; Visit Provider Preventive Medicine Occupational Medicine | DX: Z71.3 Dietary counseling and surveillance (principal); E66.01 Morbid (severe) obesity due to excess calories; Z68.43 Body mass index [BMI] 50.0-59.9, adult | CPT/HCPCS: 97803 ==

== ENCOUNTER 2022-09-14 08:30 | Outpatient (RCR) | payer OTHER, SELFPAY ==
--- NOTE | 2022-07-11 10:42 | HP.PTEVAL_ITS ---
Patient's Visit Information ALMA DELIA HERBERT is a 56 year old F referred to Physical Therapy by Dr. Abilio Nassar DO with a diagnosis of Right TKR. Date of Evaluation: 07/11/22 Physical Therapist: Willow Hua DPT - Visit Plan Frequency: 2-3x /Week Duration: 4 Weeks Plan: Right TKR- 07/05/22-Focus on ROM, LE and core strength/stabilization- functional mobility. HEP Given: Heel slide supine, seated, step stretch, bolster extn stretch - Subjective Patient had TKR on the right 07/05/22- by Dr. Aden at [facility]-stayed a day then went home- single story home with 2 stairs to enter with no HR- getting in/out today was a fine- she has plenty of people to help. Left TKR in 2017- this one seems to be a little harder. Fully I prior to surgery. 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 She reports the swelling is the worst pain. Worst: 7/10 Agg: trying to do the kicks, raising and lowering. Best: 3/10. She has constant hip pain on the greater trochanter- dull and achy- toothache. In the knee she is sore in the medial joint line and distal dull and achy until then has some sharps when she moves it. No new N/T in the right foot- great toe and 2nd toe. No loss or change in bowel/bladder. Sleep: fair- in the bed- normally a side sleeper but currently on her back without a pillow under. Goals: get back to work. More Sedentary outside of work- chasing [employer] (6 months). PMHx: HTN, A-fib, CHF. Meds: metoprolol, losartan, diazide, Eliquis, flecainide, potassium, ferasgluconate, lasix PRN- currently on Tramadol with Tylenol and Oxy for break through- (Ex given: slide, ankle pumps, glut sets, LAQ and she doesn't remember the rest). - Objective Posture: FH, RS- can correct but is unable to maintain. Gait: antalgic- step to with FWW. SLS: weight shift with UE A. HR/TR: able with UE A. Stairs: non recip asc/desc with 2 HR. Observation: bandage in tact- no s/s of infection. Palpation: tender throughout LE in both knee medial and lateral joint lines and along the gastroc- not point tender. Girth: Patella:56 cm, 6 above: 73 cm. ROM: 10-45. Sensation: intact to gross touch. Strength: Core: fair, Hip: 4-/5 SLR: mod A and is unable to hold Knee: Flexion: 5.0 Extn: 8, Ankle: 5/5. - Balance/Special Test Scores Lower Extremity Functional Score: 16 TUG Test Time Seconds: 23.21 WOMAC Total Score: 47 WOMAC Percentatge: 51.0500 - Goals Goal 1:: Patient will be I with HEP and progression Goal Time Frame: 4-6 Weeks Goal 2:: Patient will ambulate >300 feet with a normalized gait pattern with LRD Goal Time Frame: 4-6 Weeks Goal 3:: Patient will asc/desc 8 recip with 1 HR Goal Time Frame: 4-6 Weeks Goal 4:: Patient will improve TUG score to below 10 seconds Goal Time Frame: 4-6 Weeks Goal 5:: Patient will report 80% improvement Goal Time Frame: 4-6 Weeks - Rehabilitation Potential Physical Therapy Diagnosis: Patient presents with hypomobility s/p Right TKR- she has decreased LE and core strength/stabilization, ROM, proprioception and muscular endurance leading to abnormal gait and decreased ability to perform ADL's Rehabilitation Potential: Good - Anticipated Interventions Patient/Client Instruction: Educate patient on: Benefits of Fitness Program Therapeutic Exercise to Include: Strength training, Endurance training, Balance training, Coordination, Agility training, Body mechanics, Postural training, Flexibilty training, Gait and locomotor training, Neuromotor development, Dynamic Lumbar Stabilization, Scapular Strength/Stabilization For the Purpose of:: To improve muscle performance and motor function TENS: No Cryotherapy (ice pack, ice massage): Yes Thermo therapy (hot pack): Yes Ultrasound (thermal/non thermal): No Thank you for the opportunity to evaluate your patient. For Medicare and Medicare HMO plans, please review the plan of care and approve it. It will need to be FAXED BACK to us at [phone] for Medicare purposes. For Medicare only, by signing this I certify the plan of care. Please let me know if there are questions or concerns regarding this plan of care. Physician Signature: Date:
--- NOTE | 2022-08-10 08:59 | HP.PTREVAL ---
Dr. Abilio Nassar, DO, It has been my pleasure to treat ALMA DELIA HERBERT over the last 14 visits for Right TKR. Please see the progress note below for an update on the physical therapy plan of care! Subjective: Patient reports that she fell last night over her granddaughter so she was sore. She feels that she is 80% better-she would like to attempt a HEP indep due to getting back to work. Objective/Function: *Objectives may be skewed due to fall yesterday. Posture: fair throughout. Gait: slightly antalgic- recip pattern without AD. SLS: 5 sec. HR/TR: able with UE A. Stairs: recip asc/desc with 2 HR. Observation: no s/s of infection- incision healing well. Palpation: tender throughout LE in both knee medial and lateral joint lines and along the gastroc- not point tender. ROM: 10-90. Sensation: intact to gross touch. Strength: Core: fair, Hip: 4+/5 Knee: Flexion: 13 Extn: 30, Ankle: 5/5. Plan Plan: 08/10/22: Hold- will do Indep HEP- will keep chart open for 4 weeks- encouraged to call if questions- will d/c if no more PT needed. Focus ROM flexion/extension. IE: Right TKR- 07/05/22-Focus on ROM, LE and core strength/stabilization- functional mobility. IE:HEP Given: Heel slide supine, seated, step stretch, bolster extn stretch Balance/Gait/Functional tests - Balance/Special Test Scores Lower Extremity Functional Score: 16 TUG Test Time Seconds: 23.21 Tug Test: <10 sec.=free mobile WOMAC Total Score: 24 WOMAC Percentage: 75.0000 Goals Goal 1:: Patient will be I with HEP and progression Goal Time Frame: 4-6 Weeks Goal Progress: Progressing Goal 2:: Patient will ambulate >300 feet with a normalized gait pattern with LRD Goal Time Frame: 4-6 Weeks Goal Progress: Progressing Goal 3:: Patient will asc/desc 8 recip with 1 HR Goal Time Frame: 4-6 Weeks Goal Progress: Progressing Goal 4:: Patient will improve TUG score to below 10 seconds Goal Time Frame: 4-6 Weeks Goal Progress: Progressing Goal 5:: Patient will report 80% improvement Goal Time Frame: 4-6 Weeks Goal Progress: Goal Met Anticipated Interventions Patient/Client Instruction: Educate patient on: Benefits of Fitness Program Therapeutic Exercise to Include: Strength training, Endurance training, Balance training, Coordination, Agility training, Body mechanics, Postural training, Flexibilty training, Gait and locomotor training, Neuromotor development, Dynamic Lumbar Stabilization, Scapular Strength/Stabilization For the Purpose of:: To improve muscle performance and motor function TENS: No Cryotherapy (ice pack, ice massage): Yes Thermo therapy (hot pack): Yes Ultrasound (thermal/non thermal): No Please do not hesitate to contact me at [phone] by phone or if you have questions or concerns regarding this new plan of care! Sincerely, KAREN CrainT
--- NOTE | 2022-09-14 08:54 | HP.PTDCSUM_ITS ---
It has been my pleasure to treat ALMA DELIA HERBERT referred by Dr. Abilio Nassar DO, with the diagnosis of Right TKR for a total of 22 visit(s). Discharge Date: Please see the following information for a summary of their discharge status. Subjective: Patient reports that she is doing great- she is back to work- she does have stiffness but no pain in the knee. There is nothing she can't do from ADL's to recreational activities. 10% left is from the bending but it took almost a year before she got her full- she knows all the ex to do to keep at increasing ROM Right Knee Pain Intensity (Out of 10): 0 % Improvement: 90 Objective/Function: Posture: fair in sitting and standing. Gait: no deviation noted SLS: weight shift with UE A. HR/TR: able with UE A. Stairs: asc/desc 8 recip with 1 HR. Observation:no s/s of infection- healing well. Palpation: not tender ROM: 5-105. Sensation: intact to gross touch. Strength: Core: fair, Hip: 4+/5 Knee: Flexion: 47 Extn: 65, Ankle: 5/5. Goal 1:: Patient will be I with HEP and progression Goal Progress: Goal Met Goal 2:: Patient will ambulate >300 feet with a normalized gait pattern with LRD Goal Progress: Goal Met Goal 3:: Patient will asc/desc 8 recip with 1 HR Goal Progress: Goal Met Goal 4:: Patient will improve TUG score to below 10 seconds Goal Progress: Goal Met Goal 5:: Patient will report 80% improvement Goal Progress: Goal Met Plan: 09/14/22: Discharge to I HEP- pt has full functional mobility. 08/22: Per pt, doctor wants pt to cont PT. [employer] RECOR[employer] CLERK kylie Paez (supervising PT) aware of this and PT ok pt to schedule more visits. Pt is back on the schedule. OK ELR. 08/10/22: Hold- will do Indep HEP- will keep chart open for 4 weeks- encouraged to call if questions- will d/c if no more PT needed. Focus ROM flexion/extension. IE: Right TKR- 07/05/22-Focus on ROM, LE and core strength/stabilization- functional mobility. IE:HEP Given: Heel slide supine, seated, step stretch, bolster extn stretch. [ End ] If there are questions or concerns regarding this patient's physical therapy, please feel free to call me at [phone]. Thank you for the referral of this patient. Sincerely, KAREN CrainT Balance/Gait/Functional tests - Balance/Special Test Scores Lower Extremity Functional Score: 16 TUG Test Time Seconds: 23.21 Tug Test: <10 sec.=free mobile WOMAC Total Score: 2 WOMAC Percentage: 97.9200
== END 2022-09-14 09:59 | disposition home or self-care (01) ==
LOC: PT 08:30
PROVIDERS: PCP Preventive Medicine Occupational Medicine; Referring Provider Orthopaedic Surgery; Visit Provider Orthopaedic Surgery
DX: M17.11 Unilateral primary osteoarthritis, right knee (principal)
CPT/HCPCS: 97110; 97162; 97164

== ENCOUNTER → 2022-12-12 | Outpatient (CLI) | payer OTHER, SELFPAY ==
[2022-12-12 08:27] LABS: Hematocrit 41.4 % (37-47); Hemoglobin 13.6 g/dL (12.0-15.0); Mean Corp Hgb Conc 32.9 g/dL (32-36); Mean Corpuscular Hgb 31.3 pg (27.0-32.0); Mean Corpuscular Volume 95.4 fL (81-99); Mean Platelet Vol. 12.2 fl (6.2-12.0); Platelet Count 129 K/mm3 (150-450); RBC Distribution Width CV 13.3 % (11.6-14.6); RBC Distribution Width SD 47.2 fl (35.1-43.9); Red Blood Count 4.34 M/mm3 (4.2-5.4); White Blood Count 6.3 K/mm3 (4.4-11.0)
[2022-12-12 08:57] LABS: Anion Gap 6 (5-15); BUN 15 mg/dL (7-18); BUN/Creat Ratio 17.6 RATIO (10-20); Calcium,Total 8.5 mg/dL (8.5-10.1); Chloride 106 mmol/L (98-107); Cholesterol 183 mg/dL (200); Creatinine, Serum 0.85 mg/dL (0.55-1.02); EST Glomerular Filtration Rate 73 mL/min (>60); Est Glom Filt Rate - Afr Amer 89 mL/min (>60); Glucose 88 mg/dL (74-106); High Density Lipoprotein 60 mg/dL; Iron 84 ug/dL (50-170); Potassium 3.8 mmol/L (3.5-5.1); Sodium Level 135 mmol/L (136-145); Triglycerides 143 mg/dL; Very Low Density Lipoprotein 29 mg/dL (5-40)
== END | disposition home or self-care (01) ==
LOC: LAB 08:00
PROVIDERS: PCP Preventive Medicine Occupational Medicine; Referring Provider Preventive Medicine Occupational Medicine; Visit Provider Preventive Medicine Occupational Medicine
DX: I10 Essential (primary) hypertension (principal); I48.0 Paroxysmal atrial fibrillation; D50.9 Iron deficiency anemia, unspecified
CPT/HCPCS: 36415; 80048; 80061; 83540; 85027

== ENCOUNTER → 2023-04-09 | Outpatient (CLI) | payer OTHER, SELFPAY ==
--- NOTE | 2023-04-09 15:46 | RAD_ITS ---
INDICATION: PAIN LEFT SHOULDER X 6 MONTHS EXAMINATION/TECHNIQUE: X-RAY - LEFT XR Shoulder Min 2 Views COMPARISON: None. FINDINGS: SOFT TISSUES: No significant soft tissue swelling. Punctate calcification abutting superolateral humeral head. BONES/JOINTS: No acute fracture or subluxation. Normal alignment. Mild acromioclavicular joint space narrowing and osteophytosis. No suspicious osseous lesion observed. RAD/Shoulder min 2 Views IMPRESSION: 1. Mild acromioclavicular osteoarthrosis 2. Punctate calcification abutting humeral head at level of rotator cuff insertion, suggesting chronic rotator cuff calcific tendinitis Electronically Signed: Pawel Martin MD at 22:43 EDT ,
--- NOTE | 2023-04-09 15:46 | RAD_ITS ---
INDICATION: PAIN LEFT FOOT - LATERAL ASPECT OF THE CALCANEOUS EXAMINATION/TECHNIQUE: X-RAY - LEFT XR Foot Min 3 Views COMPARISON: None. FINDINGS: SOFT TISSUES: No significant soft tissue swelling. No radiopaque foreign body detected. BONES/JOINTS: No acute fracture or subluxation. Normal alignment. Preservation of the joint space(s). Small posterior and plantar calcaneal enthesophytes noted. RAD/Foot min 3 Views IMPRESSION: Calcaneal spurring Electronically Signed: Pawel Martin MD at 22:41 EDT ,
== END | disposition home or self-care (01) ==
LOC: RAD 15:42
PROVIDERS: PCP Preventive Medicine Occupational Medicine; Referring Provider Preventive Medicine Occupational Medicine; Visit Provider Preventive Medicine Occupational Medicine
DX: M25.512 Pain in left shoulder (principal); M79.672 Pain in left foot
CPT/HCPCS: 73030; 73630